=== PATIENT | female | born 1990 | race Caucasian/White ===

== ENCOUNTER → 2017-12-12 13:35 | Outpatient (CLI) | payer BC, SELFPAY ==
--- NOTE | 2017-12-12 13:45 | CA_ITS ---
PROCEDURE: 2-D M-mode and color Doppler study INDICATIONS FOR THE TEST: Chest pain COPD Heart Murmur Tobacco Smoking Palpitations Fatigue Syncope Edema+ Hypertension Diabetes Mellitus Rheumatic Fever SOB MARTINEZ Obesity+Hyperlipidemia Family History HD Additional History PATIENT INFORMATION HEIGHT: 62 WEIGHT:187 GENDER: Female B/P:110/80 2-D/M-MODE INTERPRETATION: 2-D MEASUREMENTS OBSERVED VALUES IN CMS Right Ventricular Dimension (RVDd) 2.0 Interventricular Septum (Thickness)(IVsd) 1.0 Left Ventricular Internal Dimensions(LVIDd) 4.7 Left Ventricular Posterior Wall (Thickness)(LVPWd) 0.6 Aortic Root 2.9 Aortic Cusp Separation 1.9 Left Atrial Dimensions (LAD) 3.2 2D 1. Left atrium is normal size, left ventricle is normal size, there is no concentric left ventricular hypertrophy, visually estimated ejection fraction 55% with no obvious regional wall motion abnormality. 2. The right atrium and right ventricle are normal size and contractility. 3. The aortic, mitral and tricuspid valve are structurally normal. 4. The pulmonic valve is poorly visualized. 5. No significant pericardial effusion noted. DOPPLER INTERROGATION: Doppler interrogation of the aortic, mitral and tricuspid valvular presence of mild mitral and tricuspid regurgitation, tricuspid and jet velocity insufficient for calculation of the right ventricular systolic pressure, diastolic parameters are within normal range. CONCLUSION: 1. Normal left ventricular size, preserved left ventricular systolic function, visually estimated ejection fraction 55% with no obvious regional wall motion abnormality, diastolic parameters are within normal range. 2. Mild mitral and tricuspid regurgitation 3. No significant pericardial effusion noted.
== END ==
PROVIDERS: Family Provider Family Medicine; PCP Nurse Practitioner; Visit Provider Nurse Practitioner
DX: R60.9 Edema, unspecified (principal)
CPT/HCPCS: 93306

== ENCOUNTER → 2018-02-24 07:24 | Outpatient (CLI) | payer BC, SELFPAY ==
--- NOTE | 2018-02-24 | US_ITS ---
ULTRASOUND THYROID PROCEDURE: Multiple sagittal & transverse ultrasound images of the thyroid. HISTORY: Thyroid nodule follow-up. COMPARISON: January 28, 2017 ----- FINDINGS: Generous appearing thyroid gland bilaterally. Right lobe larger than left. Generous diffuse color Doppler flow both right and left lobe. No focal areas of significant concern either lobe RIGHT LOBE: 4.5 cm length 2.3 cm wide x 1.2 cm AP. Slightly lobulated gland posteriorly but no discrete nodule. No change since prior study LEFT LOBE: 3.7 cm length x 2.1 cm wide x 1.2 cm AP . Again slightly lobulated contour of the gland but no discrete nodule and no change since prior study. ISTHMUS: Normal thickness measuring less than 4 mm AP We again see a small hypoechoic nodule at the isthmus measuring 6 mm transverse x 2.3 mm AP. It is incrementally longer on today's images but small & should be followed IMPRESSION 1. Small Hypoechoic nodule at right isthmus again noted. Similar to perhaps incremental longer. Follow-up in 9-12 months suggested 2. Right lobe mildly enlarged measuring 4.5 cm in length.. No discrete nodule and right or left lobe
--- NOTE | 2018-02-24 07:30 | US_ITS ---
US thyroid Ordering Physician: Vanessa Thacker MD Patient Age: 27 years: Female HISTORY. Prior pneumonia. Lung nodules. TECHNIQUE: Helical CT scanning performed the chest. No IV contrast utilized. Axial sagittal and coronal reconstructions performed on CT workstation. All CT scans at this facility used one or more dose reduction techniques , viz: automatic exposure control, ma/Kv adjustment per patient's size, (including targeted exam where dose matched to the indication; i.e. head); or iterative reconstruction technique COMPARISON :CT chest 09/02/2017 FINDINGS Scattered calcified granulomas bilaterally appear similar. There numerous linear areas likely reflecting postinflammatory scarring, Bilaterally.. Borderlineinterstitial coarsening.. Scattered fibrotic changes. Upper normal thickness of of central airways particularly at left infrahilar region No significant new cardiopulmonary findings. No pleural effusion RIGHT CHEST.: Linear postinflammatory scarring at the medial right upper lung best seen on sagittal slice 43 day stable. Minimal area of linear scarring at RML and posterior sulcus . Elevation right hemidiaphragm similar to prior studies Numerous stable calcified granulomas are partially only seen throughout right lung but not left: 5 mm calcified granuloma right apex axial slice 11. There is 6 mm calcified granuloma axial slice 24 right suprahilar region. 3 similar size small renal with anteriorly at the right middle lobe and towards minor fissure Larger 12 mm calcified granuloma periphery of right upper lobe at right midlung. Bilobed calcified granuloma at the right infrahilar region. This over 6 mm with the entire area measuring over 11 mm length LEFT CHEST:. . Stable minimal linear post inflammatory scarring at the medial left apex Minimal stable linear scarring at the lingula Mediastinum. Stable minimal small calcified mediastinal nodes most evident precarinal region as well as some calcified nodes AP window. It only few small calcified hilar nodes-unchanged.. No contrast enhancement today but the great vessels with normal contour. Heart normal size no pericardial effusion. Upper Abdominal: The 2 Hepatic cysts inferior left lobe liver, unchanged axial cm Stable 3 cm fluid-filled area medial right kidney parapelvic cyst rather than renal pelvis dilatation Adrenals unremarkable. . Osseous structures no remarkable findings. IMPRESSION: ...... Overall stable CT chest since August 2017. No significant new findings . No focal pneumonia. No pleural effusion Scattered areas of linear postinflammatory scarring again noted bilaterally. Old granulomatous disease. Numerous calcified granulomata throughout the right lung
[2018-02-24 12:34] LABS: T4 (Thyroxine) 14.8 ug/dl (4.7-13.3); Thyroid Stimulating Hormone 0.97 uIU/ml (0.358-3.740)
[2018-02-25 18:34] LABS: Triiodothyronine (T3) Total 189 ng/dL (71-180)
== END ==
PROVIDERS: Family Provider Family Medicine; PCP Nurse Practitioner; Visit Provider Otolaryngology
DX: E04.1 Nontoxic single thyroid nodule (principal)
CPT/HCPCS: 36415; 76536; 84436; 84443; 84480

== ENCOUNTER → 2018-10-13 14:19 | Outpatient (CLI) | payer BC, SELFPAY ==
[2018-10-13 17:16] LABS: Free T4 (Free Thyroxine) 1.13 ng/dl (0.76-1.46); Thyroid Stimulating Hormone 1.75 uIU/ml (0.358-3.740)
[2018-10-15 19:01] LABS: Thyroid Peroxidase Antibodies 85 IU/mL (0-34)
[2018-10-17 06:40] LABS: Thyroglobulin Level 2.3 IU/mL (0.0-0.9)
== END ==
PROVIDERS: Visit Provider Otolaryngology
DX: E03.9 Hypothyroidism, unspecified (principal)
CPT/HCPCS: 36415; 84439; 84443; 86376; 86800

== ENCOUNTER → 2019-04-09 14:49 | Outpatient (CLI) | payer BC, SELFPAY ==
--- NOTE | 2019-04-09 14:53 | US_ITS ---
US thyroid HISTORY: Follow-up thyroid nodule ITS.REASON: THYROID NODULE ORDERING PHYSICIAN: Vanessa Thacker MD PATIENT AGE: 28 years Comparison: 01/28/2017 FINDINGS: The right lobe measures 3.9 x 1 x 1.8 cm. There is heterogeneous echogenicity without discrete nodule. The left lobe is 3.9 x 1.4 x 1.5 cm with heterogeneous echogenicity without definite nodule. There is 5 x 3 mm isoechoic nodule within the its isthmus of the thyroid gland centrally and on the right not significant change. IMPRESSION: No change in the isthmus nodule..
== END ==
PROVIDERS: Visit Provider Otolaryngology
DX: E04.1 Nontoxic single thyroid nodule (principal)
CPT/HCPCS: 76536

== ENCOUNTER → 2019-08-13 12:10 | Outpatient (CLI) | payer BC, SELFPAY ==
[2019-08-13 16:29] LABS: Free Thyroxine Index 4.5 ug/dL (5.93-13.13); T4 (Thyroxine) 15.5 ug/dl (4.7-13.3); Triiodothryronine (T3) Uptake 29 % (31-39)
== END ==
PROVIDERS: Visit Provider Nurse Practitioner Obstetrics & Gynecology
DX: E03.9 Hypothyroidism, unspecified (principal)
CPT/HCPCS: 36415; 84436; 84443; 84479

== ENCOUNTER → 2019-12-05 16:58 | Outpatient (CLI) | payer BC, SELFPAY ==
[2019-12-05 20:10] LABS: Free T4 (Free Thyroxine) 0.98 ng/dl (0.78-2.19)
[2019-12-05 20:25] LABS: Thyroid Stimulating Hormone 1.72 uIU/mL (0.465-4.68)
== END ==
PROVIDERS: Visit Provider Otolaryngology
DX: E03.9 Hypothyroidism, unspecified (principal)
CPT/HCPCS: 36415; 84439; 84443

== ENCOUNTER 2020-11-21 19:03 | Emergency (ER) | payer BC, SELFPAY ==
[2020-11-21 19:25] VITALS: BP 126/89; PULSE 83; RESP 19; TEMP 36.9; O2SAT 98; BMI 34.5
--- NOTE | 2020-11-21 20:00 | HMH.EDUTC ---
[facility] [place] Disposition Clinical Impression: Eczema Qualifiers: Eczema type: flexural Qualified Code(s): L20.82 - Flexural eczema Disposition: Home, Self-Care Condition on Discharge: Good Instructions: DI for Atopic Dermatitis-Adult Prescriptions: methylPREDNISolone [Medrol 4mg tab] 4 mg PO DIRECTED #21 tab Transmission Status: Pending to [facility] Triamcinolone Acetonide 80 gm TP TID PRN 10 Days #80 oint...g. PRN Reason: Rash Transmission Status: Pending to [facility] Referrals: Shadi Cooper MD [Primary Care Provider] - Time of Disposition: 20:03 Medical Decision Making - Lyle Inquiry Pt receiving controlled substance: No Vital Signs: 11/21/20 19:25 Temperature 98.4 F Temperature Source Oral Pulse Rate [Right Brachial] 83 Respiratory Rate 19 Blood Pressure [Right Arm] 126/89 Blood Pressure Mean [Right Arm] 101 Blood Pressure Source [Right Arm] Automatic Cuff Blood Pressure Position [Right Arm] Sitting 02 Sat by Pulse Oximetry 98 Oxygen Delivery Method Room Air [facility] [place] HPI - General Stated complaint: rash on r arm Time Seen by Provider: 11/21/20 20:00 Mode of Arrival: Ambulatory Source of Information: Patient Limitations: No Limitations Description of Symptoms (Recalled from Triage Doc. by RN): rash on right arm x1 month HEENT Symptoms (Recalled from RN notes): No Resp Symptoms (Recalled from RN notes): No Skin Symptoms (Recalled from RN notes): Yes MS Symptoms (Recalled from RN notes): No Functional Status (Recalled from RN notes): wnl - History of Present Illness Provider Complaint: Rash right antecubital area X 1 month. Itchy, raised, sore. Started after COVID19 vaccine but isn't sure it is related. Has tried Nystatin cream without relief. Onset (ago): month(s) (1) Location: right, upper extremity Relieving factors: none Exacerbating factors: none Associated symptoms: denies other symptoms Treatments prior to arrival: none - Related Data Home Medications Medication Instructions Recorded Confirmed fluoxetine 40 mg capsule 40 mg PO DAILY 08/27/19 10/29/20 levothyroxine 25 mcg tablet mcg PO 10/29/20 10/29/20 Previous Rx's Medication Instructions Recorded drospirenone 3 mg-ethinyl 1 tab PO DAILY #84 tab 12/03/19 estradiol 0.03 mg tablet Triamcinolone Acetonide 80 gm TP TID PRN 10 Days #80 11/21/20 oint...g. methylPREDNISolone [Medrol 4mg 4 mg PO DIRECTED #21 tab 11/21/20 tab] Allergies Allergy/AdvReac Type Severity Reaction Status Date / Time Sulfa (Sulfonamide Allergy Mild Verified 10/29/20 13:52 Antibiotics) [SULFA (SULFONAMIDE ANTIBIOTICS)] - Worker's Comp Is this a Worker's Comp case?: No [facility] History - Hepatitis A Screen Drug use history?: No High risk sexual behaviors?: No History of sexually transmitted infection?: No Currently employed?: No Childcare worker?: No Do you have indoor plumbing?: Yes Do you have electricity?: Yes Attestation statement:: This patient has been screened for Hepatitis A risk factors. I have reviewed the patient's past medical history: Yes Medical History: Reports:: Anxiety, Depression Denies:: Asthma, Cancer, Diabetes Mellitus Type 1, Diabetes Mellitus Type 2, Migraine, MRSA, Seizures Other Medical History: Reports: Hypothyroidism, Thyroid Disease Laterality Cases: Bilateral: Tonsillectomy Other Surgeries: Yes: Cholecystectomy Amputation: No Fractures: No Comment: wisdom teeth. Laparoscopic Left Ovarian Cystectomy for Dermoid Cyst. - Social History Smoking Status: Never smoker Alcohol Intake: never Substance Use Type: denies use Occupational Status: other - Psychiatric History Pschychiatric History:: Reports:: Anxiety, Depression Family Hx:: Cancer, Heart Attack, Asthma ROS Obtained: Yes All systems reviewed & no additional complaints - Integumentary/Breasts Skin/Breast: Reports rash Physical Exam - General General appearance: alert, in no apparent distr
[2020-11-21 20:21] VITALS: BP 126/89; PULSE 83; RESP 19; TEMP 36.9; O2SAT 98
== END 2020-11-21 20:22 | disposition home or self-care (01) ==
PROVIDERS: Emergency Provider Physician Assistant; PCP Family Medicine
DX: L20.82 Flexural eczema (principal); F41.8 Other specified anxiety disorders; E03.9 Hypothyroidism, unspecified; Z88.2 Allergy status to sulfonamides
CPT/HCPCS: 99202; G0463

== ENCOUNTER → 2021-06-09 11:15 | Outpatient (CLI) | payer BC, SELFPAY | PROVIDERS: PCP Family Medicine; Visit Provider Nurse Practitioner | DX: Z20.822 Contact with and (suspected) exposure to COVID-19 (principal) | CPT/HCPCS: C9803; U0003; U0005 ==

== ENCOUNTER → 2021-08-27 08:15 | Outpatient (CLI) | payer BC, SELFPAY | PROVIDERS: PCP Family Medicine; Visit Provider Nurse Practitioner | DX: Z20.822 Contact with and (suspected) exposure to COVID-19 (principal) | CPT/HCPCS: C9803; U0003; U0005 ==

== ENCOUNTER → 2021-09-24 16:03 | Outpatient (CLI) | payer BC, SELFPAY | PROVIDERS: Visit Provider Nurse Practitioner | DX: Z20.822 Contact with and (suspected) exposure to COVID-19 (principal) | CPT/HCPCS: C9803; U0003; U0005 ==

== ENCOUNTER 2022-03-13 12:12 | Emergency (ER) | payer BC, SELFPAY ==
[2022-03-13 12:29] VITALS: BP 130/74; PULSE 81; RESP 17; TEMP 36.8; O2SAT 97; BMI 26.4
--- NOTE | 2022-03-13 13:21 | HMH.EDUTC ---
[facility] [place] Clinical Impression: Right ear pain Right otitis externa Qualifiers: Otitis externa type: unspecified type Chronicity: acute Qualified Code(s): H60.501 - Unspecified acute noninfective otitis externa, right ear Disposition: Home, Self-Care Condition on Discharge: Good Instructions: How to Instill Ear Drops, DI for Otitis Externa Additional Instructions: Drink plenty of fluids. Take tylenol or ibuprofen for pain. Use the ear drops as directed. Follow up with your regular doctor. GO TO THE ER FOR ANY WORSENING SYMPTOMS Prescriptions: Ciprofloxacin HCl/Dexameth [Cipro 0.3%-Dex 0.1% Otic Susp 7.5mL] 2 drops EAR-RIGHT BID 7 Days #1 ml Transmission Status: Received by [facility] Referrals: Provider,Referral, [Primary Care Provider] - Time of Disposition: 13:24 Medical Decision Making - Medical Records Medical records reviewed: No: I reviewed the patient's medical records. - Lyle Inquiry Pt receiving controlled substance: No Vital Signs: 03/13/22 12:29 03/13/22 13:24 Temperature 98.2 F 98.2 F Temperature Source Oral Pulse Rate 81 Pulse Rate [Left Radial] 81 Respiratory Rate 17 17 Blood Pressure 130/74 Blood Pressure [Right Arm] 130/74 Blood Pressure Mean [Right Arm] 92 02 Sat by Pulse Oximetry 97 [facility] [place] - General Stated complaint: rt ear pain Time Seen by Provider: 03/13/22 12:30 Description of Symptoms (Recalled from Triage Doc. by RN): patient comes in today with complaints of right ear pain. it has been going on for 2 days HEENT Symptoms (Recalled from RN notes): Yes Resp Symptoms (Recalled from RN notes): No Skin Symptoms (Recalled from RN notes): No MS Symptoms (Recalled from RN notes): No Functional Status (Recalled from RN notes): wnl - History of Present Illness Provider Complaint: She states that she has had right ear pain for the past 2 days. - Related Data Home Medications Medication Instructions Recorded Confirmed fluoxetine 40 mg capsule 40 mg PO DAILY 08/27/19 10/29/20 levothyroxine 25 mcg tablet mcg PO 10/29/20 10/29/20 Previous Rx's Medication Instructions Recorded Ciprofloxacin HCl/Dexameth [Cipro 2 drops EAR-RIGHT BID 7 Days #1 ml 03/13/22 0.3%-Dex 0.1% Otic Susp 7.5mL] Allergies Allergy/AdvReac Type Severity Reaction Status Date / Time Sulfa (Sulfonamide Allergy Mild Verified 03/13/22 12:31 Antibiotics) [SULFA (SULFONAMIDE ANTIBIOTICS)] - Worker's Comp Is this a Worker's Comp case?: No [facility] History - Hepatitis A Screen Attestation statement:: This patient has been screened for Hepatitis A risk factors. I have reviewed the patient's past medical history: Yes Medical History: Reports:: Anxiety, Depression Denies:: Asthma, Cancer, Diabetes Mellitus Type 1, Diabetes Mellitus Type 2, Migraine, MRSA, Seizures Other Medical History: Reports: Hypothyroidism, Thyroid Disease Laterality Cases: Bilateral: Tonsillectomy Other Surgeries: Yes: Cholecystectomy Amputation: No Fractures: No Comment: wisdom teeth. Laparoscopic Left Ovarian Cystectomy for Dermoid Cyst. - Social History Smoking Status: Never smoker Alcohol Intake: never Substance Use Type: denies use Occupational Status: other - Psychiatric History Pschychiatric History:: Reports:: Anxiety, Depression Family Hx:: Cancer, Heart Attack, Asthma ROS Obtained: Yes All systems reviewed & no additional complaints - Constitutional Constitutional: Denies chills, Denies fever(s) - Eyes Eyes: Denies eye discharge - ENT Ears, Nose, Mouth, and Throat: Reports as per HPI - Cardiovascular Cardiovascular: Denies chest pain - Respiratory Respiratory: Denies chest congestion, Denies cough, Denies dyspnea, Denies stridor, Denies wheezing Physical Exam - General General appearance: alert, in no apparent distress - Head Head exam: atraumatic, normocephalic, normal inspection - Eye Eye exam: Present: normal ap
[2022-03-13 13:24] VITALS: BP 130/74; PULSE 81; RESP 17; TEMP 36.8
== END 2022-03-13 13:26 | disposition home or self-care (01) ==
PROVIDERS: Emergency Provider Nurse Practitioner Family
DX: H60.501 Unspecified acute noninfective otitis externa, right ear (principal); E03.9 Hypothyroidism, unspecified; F32.A Depression, unspecified; F41.9 Anxiety disorder, unspecified; Z79.899 Other long term (current) drug therapy; Z88.2 Allergy status to sulfonamides; Z82.49 Family history of ischemic heart disease and other diseases of the circulatory system; Z80.9 Family history of malignant neoplasm, unspecified; Z82.5 Family history of asthma and other chronic lower respiratory diseases
CPT/HCPCS: 99213; G0463

== ENCOUNTER → 2022-04-12 15:30 | Outpatient (CLI) | payer BC, SELFPAY ==
[2022-04-14 08:15] LABS: HSV 1 IgG, Type Spec <0.91 index (0.00-0.90); HSV 2 IgG, Type Spec <0.91 index (0.00-0.90)
[2022-04-14 12:17] LABS: Rapid Plasma Reagin Ab Titer Non Reactive (NonRea<1:1)
[2022-04-16 23:09] LABS: Hep A Ab, IgM NEGATIVE; Hepatitis B Core Antibody IgM NEGATIVE; Hepatitis B Surface Antigen NEGATIVE; Hepatitis C Antibody 0.1
[2022-04-17 23:31] LABS: HIV Screen 4th Generation wRfx Non Reactive
== END ==
LOC: LAB 15:31
PROVIDERS: Visit Provider Nurse Practitioner Obstetrics & Gynecology
DX: Z72.51 High risk heterosexual behavior (principal); Z11.4 Encounter for screening for human immunodeficiency virus [HIV]
CPT/HCPCS: 36415; 80074; 86592; 86695; 86703; 86790; G0432

== ENCOUNTER → 2022-04-19 10:21 | Outpatient (CLI) | payer BC, SELFPAY ==
--- NOTE | 2022-04-19 10:22 | US_ITS ---
FINAL REPORT TECHNIQUE: Sonographic images of the pelvis were obtained transvaginally. CLINICAL HISTORY: LLQ Pain-- HX OF LT DERMOID REMOVED X 5 YRS AGO FINDINGS: The uterus is retroverted and retroflexed. It measures 6.4 x 2.8 x 3.1 cm. The endometrial stripe measures 8 mm which is normal. The myometrium is homogeneous. The cervix is within normal limits. The right ovary measures 2.9 x 2.5 x 2.5 cm. There are multiple small peripherally oriented follicles. The left ovary measures 3.5 x 2.2 x 2.1 cm. There are multiple small peripherally oriented follicles. There is an abnormality in the left adnexa which is separate from the ovary and difficult to determine if this is associated with the GI track. Color imaging to the ovaries is within normal limits. There is some free fluid. IMPRESSION: Small peripheral ovarian follicles bilaterally which can be seen with PCOS. Left adnexal abnormality. Difficult to determine the organ of origin. Patient has history of a dermoid, this could be recurrent or a residual mass versus GI tract. CT of the abdomen and pelvis with oral and IV contrast should be considered for further evaluation. Reviewed, Interpreted and Dictated by Fabiola Robledo MD Transcribed by Fauzia Ignacio Authenticated and [facility]
== END ==
PROVIDERS: Visit Provider Nurse Practitioner Obstetrics & Gynecology
DX: R10.32 Left lower quadrant pain (principal); D36.9 Benign neoplasm, unspecified site
CPT/HCPCS: 76830

== ENCOUNTER → 2022-07-13 15:21 | Outpatient (CLI) | payer BC, SELFPAY ==
--- NOTE | 2022-07-13 15:21 | US_ITS ---
FINAL REPORT CLINICAL HISTORY: RIGHT OVARIAN CYST COMPARISON: 04/19/2022 FINDINGS: Transvaginal sonographic images of the pelvis were obtained. The uterus measures 6.4 x 2.8 x 3.6 cm. The endometrium measures 6 mm, which is within normal limits. No uterine mass is identified. The right ovary measures 3.3 cm in length and left ovary measures 2.9 cm in length. Small follicles are seen bilaterally consistent with poly cystic ovarian syndrome. There is a hyperechoic left adnexal mass measuring 1.4 cm which is unchanged and of uncertain etiology. Normal blood flow seen to the ovaries. There is moderate pelvic free fluid. IMPRESSION: Stable hyperechoic left adnexal mass of uncertain etiology. CT of the abdomen and pelvis could further evaluate. Moderate pelvic free fluid. Polycystic ovarian syndrome. Reviewed, Interpreted and Dictated by Danish Price III, MD Transcribed by Myriam Estes Authenticated and [facility]
== END ==
LOC: RAD 15:21
PROVIDERS: Visit Provider Nurse Practitioner Obstetrics & Gynecology
DX: N83.201 Unspecified ovarian cyst, right side (principal)
CPT/HCPCS: 76830

== ENCOUNTER → 2023-02-22 08:47 | Outpatient (CLI) | payer BC, SELFPAY ==
--- NOTE | 2023-02-22 08:51 | US_ITS ---
FINAL REPORT CLINICAL HISTORY: 6 month follow up COMPARISON: June 2022 FINDINGS: Transvaginal Ultrasound Technique: Transvaginal sonographic images of the pelvis were obtained. Findings: The uterus is retroflexed and measures 5.9 x 3.5 x 3.1 cm. The uterus has a heterogeneous echotexture. There are nabothian cysts in the cervix. The endometrium is within normal limits. The right ovary measures up to 3.0 cm. The left ovary measures up to 1.9 cm. Blood flow is identified in the both ovaries. There are small cysts or follicles in both ovaries that are favored to be physiologic. There is a small to moderate amount of free fluid which is likely physiologic. The previously identified left adnexal mass is not identified. IMPRESSION: Previous left adnexal mass no longer identified. Reviewed, Interpreted and Dictated by Wale Raines MD Transcribed by Humberto Sales Authenticated and [facility]
== END ==
PROVIDERS: PCP Family Medicine; Visit Provider Nurse Practitioner Obstetrics & Gynecology
DX: N83.8 Other noninflammatory disorders of ovary, fallopian tube and broad ligament (principal)
CPT/HCPCS: 76830

== ENCOUNTER 2024-02-23 17:02 | Outpatient (CLI) | payer BC, SELFPAY ==
[2024-02-23 17:51] LABS: Basophils # 0.1 K/mm3 (0-0.2); Basophils % 0.8 % (0.1-2.0); Eosinophils # 0.1 K/mm3 (0.0-0.4); Eosinophils % 1.5 % (0.1-12.0); Hematocrit 42.5 % (37.0-47.0); Hemoglobin 13.8 g/dL (12.2-16.2); Lymphocytes # 2.3 K/mm3 (0.7-4.5); Lymphocytes % 25.9 % (10-50); Mean Corpuscular HGB Conc 32.4 g/dL (31.8-35.4); Mean Corpuscular Hemoglobin 30.1 pg (27.0-31.2); Mean Corpuscular Volume 93.1 fl (81-99); Mean Platelet Volume 8.1 fl (7.4-10.4); Monocytes # 0.5 K/mm3 (0.1-1.0); Monocytes % 5.4 % (1.7-9.3); Neutrophils % 66.4 % (37.0-80.0); Platelet Count 305 K/mm3 (142-424); Red Blood Count 4.57 M/mm3 (4.20-5.40); Red Cell Distribution Width 13.4 % (11.5-17.5)
[2024-02-23 18:30] LABS: Alanine Aminotransferase 23 U/L (12-78); Albumin Level 4.3 g/dl (3.5-5.0); Albumin/Globulin Ratio 1.5 (1.1-1.8); Alkaline Phosphatase 66 U/L (38-126); Anion Gap 15.3 mEq/L (5-15); Aspartate Amino Transferase 30 U/L (14-36); Bilirubin,Total 0.3 mg/dl (0.2-1.3); Blood Urea Nitrogen 17 mg/dl (7-17); Calcium 9.4 mg/dl (8.4-10.2); Carbon Dioxide 25 mmol/L (22.0-30.0); Chloride 101 mmol/L (98-107); Chol/HDL Ratio 1.8 (1-3.5); Cholesterol 139 mg/dl (140-200); Estimated Glomerular Filt Rate 96 ml/min (>60); GFR (African American) 117 ML/MIN (>60); Globulin 2.9 g/dL (1.3-3.2); Glucose 90 mg/dl (74-100); HDL Cholesterol 78 mg/dl (40-60); Potassium 4.3 mmoL/L (3.5-5.1); Sodium 137 mmol/L (136-145); Total Protein,Serum 7.2 g/dl (6.3-8.2); Triglycerides 158 mg/dl (30-150); VLDL Cholesterol 32 mg/dL (0-40)
[2024-02-23 18:42] LABS: Direct LDL Cholesterol 41.26 mg/dL (100-129)
[2024-02-23 18:47] LABS: Free T4 (Free Thyroxine) 1.18 ng/dl (0.78-2.19)
[2024-02-23 19:02] LABS: Thyroid Stimulating Hormone 0.99 uIU/mL (0.465-4.68)
[2024-02-23 19:06] LABS: Hemoglobin A1C 4.9 % (4.0-6.0)
[2024-02-23 19:21] LABS: Vitamin B12 442 pg/mL (239-931)
[2024-02-23 19:41] LABS: Iron 88 ug/dL (37-170)
[2024-02-23 19:50] LABS: Total Iron Binding Capacity 309 ug/dL (265-497)
[2024-02-23 20:18] LABS: Ferritin 13.4 ng/ml (6.24-137)
[2024-02-24 12:15] LABS: Microscopic, Urine URINE MICROSCOPIC (MICROSCOPIC)
[2024-02-24 13:05] LABS: Appearance,Urine CLEAR (Clear); Bilirubin,Urine Negative (Negative); Blood, Urine Negative (Negative); Color,Urine YELLOW (Yellow); Glucose,Urine (UA) Negative (Negative); Ketones,Urine Negative (Negative); Leukocyte Esterase,Urine Negative (Negative); Nitrate,Urine Negative (Negative); PH,Urine 7.5 (5.0-8.5); Protein,Urine Negative (Negative); Specific Gravity, Urine 1.015 (1.005-1.030); Urobilinogen,Urine 0.2 EU/dl (0.2)
[2024-02-24 13:53] LABS: Bacteria,Urine Trace /lpf; RBC,Urine Occasional #/hpf (0-3); Squamous Epithelial Cell,Urine Occasional #/hpf (0-5); WBC,Urine Occasional #/hpf (0-3)
[2024-02-25 09:42] LABS: HIV Screen 4th Generation wRfx Non Reactive (Non Reactive)
[2024-02-25 11:52] LABS: HBsAg Screen Negative (Negative); HCV Ab Non Reactive (Non Reactive); Hep A Ab, IGM Negative (Negative); Hep B Core Ab, IgM Negative (Negative)
[2024-02-25 13:58] LABS: Rapid Plasma Reagin Ab Titer Non Reactive titer (NonRea<1:1)
[2024-02-27 04:17] LABS: Neisseria gonorrhoeae, NAA Negative (Negative)
== END 2024-02-23 23:59 | disposition home or self-care (01) ==
LOC: LAB.DROPOF 17:02
PROVIDERS: PCP Nurse Practitioner Family; Visit Provider Nurse Practitioner Family
DX: R53.83 Other fatigue (principal); Z13.1 Encounter for screening for diabetes mellitus; Z13.220 Encounter for screening for lipoid disorders; E11.9 Type 2 diabetes mellitus without complications; Z11.3 Encounter for screening for infections with a predominantly sexual mode of transmission; E55.9 Vitamin D deficiency, unspecified; Z79.899 Other long term (current) drug therapy
CPT/HCPCS: 80053; 80061; 80074; 81001; 82306; 82607; 82728; 83036; 83540; 83550; 84439; 84443; 85025; 86593; 86703; 87086; 87491; 87591; G0432

== ENCOUNTER 2024-12-17 15:11 | Outpatient (CLI) | payer BC, SELFPAY ==
[2024-12-17 17:25] LABS: HIV Combo NEGATIVE (Negative)
[2024-12-18 09:31] LABS: HBsAg Screen Negative (Negative); HCV Ab Non Reactive (Non Reactive); Hep A Ab, IGM Negative (Negative); Hep B Core Ab, IgM Negative (Negative)
[2024-12-18 09:42] LABS: RPR W/RFX Titers Nonreactive (Nonreactive)
[2024-12-19 23:52] LABS: HSV-1 DNA Negative (Negative); HSV-2 DNA Negative (Negative)
== END 2024-12-17 23:59 | disposition home or self-care (01) ==
LOC: LAB 15:11
PROVIDERS: PCP Nurse Practitioner Family; Visit Provider Nurse Practitioner Obstetrics & Gynecology
DX: Z11.3 Encounter for screening for infections with a predominantly sexual mode of transmission (principal)
CPT/HCPCS: 36415; 80074; 86592; 86803; 87389; 87529